=== PATIENT | female | born 1960 | race Caucasian/White ===

== ENCOUNTER 2019-08-22 09:18 | Inpatient (IN) ==
[2019-08-22] MEDS ORDERED: DUONEB (A & A) INH ONE (09:37)
--- NOTE | 2019-08-22 09:41 | PROVIDER DOCUMENTATION ---
HPI-General Adult - General Chief Complaint: Shortness of Breath Stated Complaint: SOB / HEADACHE Time Seen by Provider: 08/22/19 09:32 Source: patient Allergies/Adverse Reactions: Patient Allergies Allergy/AdvReac Type Severity Reaction Status Date / Time codeine [Codeine] Allergy Severe ANAPHYLAXIS Verified 08/22/19 10:34 latex Allergy Severe RASH Verified 08/22/19 10:34 acetaminophen [From Lortab] Allergy Intermediate HIVES Verified 08/22/19 10:34 hydrocodone bitartrate * Allergy Intermediate HIVES Verified 08/22/19 10:34 [From Lortab] Sulfa (Sulfonamide Allergy Intermediate RASH Verified 08/22/19 10:34 Antibiotics) [Sulfa(Sulfonamide Antibiotics)] piperacillin sodium * Allergy Mild RASH Verified 08/22/19 10:34 [From Zosyn] aspirin Allergy Unknown RASH Verified 08/22/19 10:34 Penicillins Allergy RASH Verified 08/22/19 10:34 morphine AdvReac Severe ANAPHYLAXIS Verified 08/22/19 10:34 Home Medications: Home Medication List Medication Instructions Recorded Confirmed Last Taken Type Clonazepam 0.5 mg PO BID 08/11/12 08/22/19 11/03/13 06:00 History Tiotropium [place] Inhaler 1 puff INH DAILY 08/11/12 08/22/19 11/03/13 06:00 History [Spiriva] Fluoxetine HCl 20 mg PO DAILY 01/26/18 08/22/19 Unknown History Furosemide 40 mg PO DAILY 01/26/18 08/22/19 Unknown History Gabapentin 100 mg PO TID 01/26/18 08/22/19 Unknown History Oxycodone/APAP 5 mg/325 mg 2 each PO Q6H PRN PRN 01/26/18 08/22/19 Unknown History [Percocet-5] Potassium Chloride E.r. [Klor-Con] 20 meq PO DAILY 01/26/18 08/22/19 Unknown History Sennosides [Senna-Gen] 1 tab PO BID 01/26/18 08/22/19 Unknown History Trazodone [Desyrel] 100 mg PO QHS 01/26/18 08/22/19 Unknown History Venlafaxine [Effexor] 37.5 mg PO DAILY 01/26/18 08/22/19 Unknown History Albuterol 2.5MG/Ipratrop 0.5MG 3 ml INH RTQ4H neb 01/27/18 08/22/19 Unknown Rx [Duoneb (A & A)] Desvenlafaxine E.r. [Pristiq ER] 50 mg PO QAM tablet 01/27/18 08/22/19 Unknown Rx Ipratropium/Albuterol INH 1 puff INH RTQ6H #1 inhaler 01/27/18 08/22/19 Unknown Rx [Combivent Respimat Inhaler] Methylprednisolone [Medrol Dosepak] 4 mg PO DIRECTED #1 package 01/27/18 08/22/19 Unknown Rx Roflumilast [Daliresp] 500 microgm PO DAILY tablet 01/27/18 08/22/19 Unknown Rx Doxycycline 100 mg PO BID #20 tab 11/13/18 08/22/19 Unknown Rx Lubiprostone [Amitiza] 24 microgm PO BID #20 cap 11/27/18 08/22/19 Unknown Rx - History of Present Illness -Gen Adult Nature of Presenting Problems: Pt. is 59 yof that presents with c/o SOB, JUÁREZ and confusion. Pt. reports she has been admitted twice for CO2 poisoning. She is on home O2 but continues to smoke. Her PCP sent her to the ED. Location of Pain/Injury: reports: head. denies: none, face, mouth, neck, chest, upper extremity, hand(s), abdomen, back, pelvis, genitalia, lower extremity, feet, upper body, lower body, generalized, other Pain Radiation: reports: no radiation. denies: arm(s), back, buttocks, chest, epigastric, feet, groin, jaw, flank (L), legs (lower), LLQ, LUQ, neck, periumbilical, flank (R), RLQ, RUQ, shoulder(s), scapula, scrotal, sternal notch, suprapubic, legs (upper), urethral, vaginal, other Quality of Pain: reports: aching. denies: cramping, sharp, tightness Severity: reports: mild. denies: moderate, severe Onset/Duration: reports: unsure, gradual Timing: reports: still present. denies: improving, intermittent, getting worse Context/Activities at Onset: reports: none. denies: light activity, moderate activity, vigorous activity, recent emotional stress, recent physical stress, recent trauma history, possible bad food, cold exposure, eating, out of country travel, rest, sleep, sexual activity, other Modifying Factors: improves with: nothing Associated Symptoms: reports: headaches, shortness of breath. denies: denies symptoms, anxiety, arm pain, back/neck pain, chest pain, constipation, cough, diaphoresis, diarrhea, dizziness, EENT symptoms, fatigue, fever/chills, genitourinary problems, heartburn, joint pain, loss of appetite, malaise, muscle aches, sinus congestion/drainage, nausea, rash, seizure, sensory/motor loss, pain with inspiration, swelling/mass in abdomen, syncope, vomiting, weakness, trouble walking, other Similar Symptoms Previously?: Yes Recently seen or treated by another doctor?: No Review of Systems - Adult - REVIEW OF SYSTEMS - ADULT Constitutional: reports: no symptoms reported Eyes: reports: no symptoms reported Ears, Nose, Mouth & Throat: reports: no symptoms reported Cardiovascular: reports: no symptoms reported Respiratory: reports: see HPI, chronic cough, shortness of breath, wheezing. denies: cough, dyspnea on exertion, pleurisy Gastrointestinal: reports: no symptoms reported Genitourinary: reports: no symptoms reported Musculoskeletal: reports: no symptoms reported Integumentary: reports: no symptoms reported Neurological: reports: see HPI, headache/migraines. denies: dizziness/vertigo, numbness, seizure, tremors Psychiatric: reports: no symptoms reported Past History - Adult - PAST MEDICAL HISTORY-ADULT Review of Records: reports: Old Records Reviewed, Nursing Assessment Review, Medications Reviewed, Social history reviewed & non-contributory. Major Childhood Illnesses: reports: denies history Cardiovascular: reports: HTN Respiratory: reports: asthma, COPD Gastrointestinal: reports: denies history Obstetrical/Gynecological: reports: denies history Genitourinary: reports: kidney disease Musculoskeletal: reports: denies history Neurological: reports: denies history Endocrine/Immune: reports: Diabetes Other Conditions: reports: denies history - PRIOR SURGERIES/PROCEDURES Surgical/Procedure History: reports: appendectomy, cholecystectomy, hysterectomy , tonsillectomy, hernia repair - PRIOR HOSPITALIZATIONS Prior Hospitalizations: reports: none - IMMUNIZATION STATUS Childhood Immunizations: See Nurse Assessment Flu Vaccine: See Nurse Assessment - FAMILY HISTORY Family History: reviewed, not pertinent - SOCIAL HISTORY Smoking: cigarettes, greater than 1 pack/day Provider spent 3-5 mins advising pt. on dangers of tobacco.: Discussed manners to quit use, and f/u contacts for add'l counseling. Physical Exam-General - PHYSICAL EXAM-ADULT Initial Vital Signs Reviewed: Yes - CONSTITUTIONAL General Appearance: alert, mild distress. negative: anxious, obtunded, combative - EYES Eyes: PERRL/EOMI, pink conjunctivae - HEAD, EARS, NOSE, MOUTH & THROAT HENMT: normocephalic/atraumatic, moist mucous membranes - NECK Neck: non-tender, full range of motion, supple, normal inspection - RESPIRATORY Respiratory: wheezing, increased rate. negative: crackles, rales, rhonchi - CARDIOVASCULAR Cardiovascular: normal peripheral pulses, regular rate, rhythm, no edema - GASTROINTESTINAL (ABDOMEN) Abdominal Exam: normal bowel sounds, non tender, soft - LYMPHATIC Lymphatic: no adenopathy - MUSCULOSKELETAL Back Exam: normal inspection, no CVA tenderness, no vertebral tenderness Extremity: normal range of motion, non-tender, normal gait, normal inspection Peripheral Pulses: radial (R): 2+, radial (L): 2+ - SKIN Integumentary: normal color, normal turgor, warm/dry - NEUROLOGIC Neurologic: grossly normal, no motor/sensory deficits - PSYCHIATRIC Psych/Mental Status: oriented x 3, other (very agitated). negative: paranoid, tearful Progress - PLAN OF CARE/RESULTS Progress/Plan/Lab Results: Vital Signs - 8 hr 08/22/19 09:25 Temperature 98.5 F Pulse Rate 89 Respiratory Rate 20 Blood Pressure 115/75 O2 Sat by Pulse Oximetry 95 Orders Category Date Time Status Cardiac Monitoring DIRECTED Care 08/22/19 09:32 Active Oxygen Therapy- ED Nursing DIRECTED Care 08/22/19 09:32 Active Saline Loc NOW Care 08/22/19 09:32 Active CHEST-2 VIEWS [RAD] Stat Exams 08/22/19 09:32 Ordered ABG [RESP] Stat Lab 08/22/19 09:37 Ordered CBC WITH ELECTRONIC DIFF [HEME] Stat Lab 08/22/19 09:32 Uncollected CK PROFILE [SP CHEM] Stat Lab 08/22/19 09:32 Uncollected COMPREHENSIVE METABOLIC PANEL [CHEM] Stat Lab 08/22/19 09:32 Uncollected PRO B-NATRIURETIC PEPTIDE Stat Lab 08/22/19 09:32 Uncollected PROTIME WITH INR [COAG] Stat Lab 08/22/19 09:32 Uncollected PTT [COAG] Stat Lab 08/22/19 09:32 Uncollected TROPONIN T Stat Lab 08/22/19 09:[address] W/POSS RFLX CULT [URINALYSIS] Stat Lab 08/22/19 09:37 Uncollected Albuterol 2.5MG/Ipratrop 0.5MG [Duoneb (A & A)] Med 08/22/19 09:37 Once 3 ml INH NOW ONE Aerosol Treatments Routine Oth 08/22/19 09:37 Ordered Aerosol Treatments Stat Oth 08/22/19 09:37 Ordered CP/SOB/Palp >45 yrs of Age Stat Oth 08/22/19 09:32 Ordered EKG [EKG] Stat Ther 08/22/19 09:32 Ordered Result Diagrams: 08/22/19 09:50 08/22/19 09:50 - EKG 1 Time of EKG reading by physician:: 10:15 EKG Read and Signed by:: Tish Beauchamp EKG Interpretation (*Must complete 3 of following elements*): Normal Rate: 78 Rhythm: NSR [place]: normal QRS: normal PA Interval: normal ST Wave: normal - XRAY 1 XRAY Study: Chest ([facility] - [address] [place] [id number] [facility] - [address] [place] [address] Department of Imaging Patient: RASTA MAS Date: 08/22/19#: [id number] : 1960DM Status: PRE ERAcct#: [id number] Age/Sex: 59/FRoom/Bed: Loc: P.ED Ordering Physician: Tish Beauchamp MD Family Physician: Mauri Baird Reason for Procedure: sob ___ Signed EXAM: CHEST-2 VIEWS HISTORY: sob TECHNIQUE: Two views COMPARISON: 11/13/2018 FINDINGS: The lungs are hyperexpanded. The pulmonary vessels are small. No cardiomegaly. Moderate sized hiatal hernia. No pleural effusions. No pneumonia. There is a left base granuloma. IMPRESSION: Severe emphysema. Electronically signed by Jonathan Huston 08/22/2019 10:22 AM 08/22/19 1022 Interpreting Physician: Jonathan Huston MD Dictated Date/Time: 08/22/19 1022 cc: Tish Beauchamp MD; Mauri Baird) XRAY Interpretation: See note - CONSULTS/PCP/HOSPITALIST Notification #1 *Consult/PCP/Hospitalist*: Dr. Armstrong Time Discussed: 11:21 Reason/Comments: Admission Consult Disposition: Will see in ED, Admit Departure - Departure Date of Disposition Decision: 08/22/19 Time of Disposition Decision: 11:18 DIAGNOSIS: Hypercapnia, Hyperkalemia UTI (urinary tract infection) Qualifiers: Urinary tract infection type: acute cystitis Hematuria presence: without hematuria Qualified Code(s): N30.00 - Acute cystitis without hematuria Disposition: ADMITTED INPATIENT 09 Certified Medical Emergency: Emergent Condition: Stable Referrals and Follow-Ups: Mauri Baird CRNP [Primary Care Provider] - - Critical Care Note This patient required my direct & personal management of CC.: No Attestation - Physician/ JOHNATHAN Attestation Patient care was provided by Advanced Practice Provider:: Yes Advanced Practice Provider:: Brianna Maradiaga Advanced Practice Provider documentation review:: The Mid-level provider documentation, treatment plan and medical decision making was reviewed by the physician who agrees with all treatment and medical decision making by the [facility]. The physician spent face to face time with patient:: No Advanced Practice Provider documentation review:: Supervising physician onsite and consulted in the evaluation and care of this patient. The physician did not have a face to face encounter with the patient.
[2019-08-22 10:09] LABS: BLOOD TYPE ARTERIAL; HCO3-(ACT) 37.2 mmoll (20.0-26.0); METHB 0.5 % (0.0-1.5); O2(CT) 16.9 mL/dL (15.0-23.0); PO2(98.6) 77 mmHg (60-100); SAMPLE BLOOD; SAO2 96.2 % (95.0-100.0); THB 13.5 g/dL (11.5-17.4); pH(98.6) 7.39 (7.35-7.45)
[2019-08-22 10:13] LABS: PCO2(98.6) 74 mmHg (35-45)
[2019-08-22 10:14] LABS: ALLEN TEST YES; MODALITY CANNULA
[2019-08-22 10:22] LABS: BASO# 0.04 X1000 (0.0-0.2); BASO% 0.5 % (0.0-0.8); EOS# 0.18 X1000 (0.0-0.7); EOS% 2.3 % (0.0-10.0); HEMATOCRIT 46.6 % (37.0-47.0); HEMOGLOBIN 14.3 g/dL (12.0-16.0); IMM GRAN# 0.04 X1000 (0.0-0.04); IMM GRAN% 0.5 % (0.0-0.5); LYMPH# 1.21 X1000 (1.2-3.4); LYMPH% 15.7 % (20.5-51.1); MCH 29.4 PG (27-31); MCHC 30.7 g/dL (33-37); MCV 95.9 FL (81-99); MONO# 0.52 X1000 (0.11-0.59); MONO% 6.7 % (1.7-9.3); MPV 9.9 FL (7.4-10.4); NEUT# 5.72 X1000 (1.4-6.5); NEUT% 74.3 % (42.2-75.2); PLT 376 X1000 (130-400); RBC 4.86 XMIL (4.2-5.4); RDW 12.8 % (11.5-14.5); WBC 7.71 X1000 (4.8-10.8)
--- NOTE | 2019-08-22 10:25 | Diag Imaging Result Doc PS360 ---
EXAM: CHEST-2 VIEWS HISTORY: sob TECHNIQUE: Two views COMPARISON: 11/13/2018 FINDINGS: The lungs are hyperexpanded. The pulmonary vessels are small. No cardiomegaly. Moderate sized hiatal hernia. No pleural effusions. No pneumonia. There is a left base granuloma. IMPRESSION: Severe emphysema. Electronically signed by Jonathan Huston 08/22/2019 10:22 AM
[2019-08-22 10:30] LABS: INR 0.92; PROTIME 12.8 Seconds (11.0-16.0)
[2019-08-22 10:31] LABS: PTT 25.9 Seconds (22.3-41.8)
[2019-08-22 10:34] LABS: BILIRUBIN URINE NEGATIVE (NEGATIVE); BLOOD URINE NEGATIVE (NEGATIVE); CLARITY CLEAR (CLEAR); COLOR YELLOW; GLUCOSE URINE NEGATIVE (NEGATIVE); KETONE URINE NEGATIVE (NEGATIVE); LEUKOCYTES URINE NEGATIVE (NEGATIVE); NITRITE URINE POSITIVE (NEGATIVE); PROTEIN URINE NEGATIVE (NEGATIVE); SP GRAVITY URINE 1.005; UROBILINOGEN URINE NORMAL
[2019-08-22] MEDS ORDERED: MACROBID PO ONE (10:38)
[2019-08-22] MEDS ORDERED: TYLENOL PO ONE (10:50)
[2019-08-22 10:55] LABS: URINE EPITHELIAL CELLS <10 /HPF (<10); URINE SOURCE CLEAN CATCH
[2019-08-22 10:59] LABS: AGAP 15; ALBUMIN 5.2 g/dL (3.5-5.0); ALKALINE PHOSPHATASE 168 U/L (32-104); BUN 11 mg/dL (8-22); CALCIUM 10.2 mg/dL (8.8-10.2); CHLORIDE 91 mmol/L (98-107); CK PROFILE 119 U/L (24-173); COSMO 285; CREATININE 0.5 mg/dL (0.5-0.9); ESTIMATED GFR > 60; GLUCOSE 112 mg/dL (70-104); GOT 17 U/L (10-30); GPT 14 U/L (10-36); POTASSIUM 5.3 mmol/L (3.5-5.1); SODIUM 143 mmol/L (136-145); TCO2 37 mmol/L (25-35); TOTAL PROTEIN 8.1 g/dL (6.3-8.3)
--- NOTE | 2019-08-22 12:24 | EKG Report ---
Test Performed on : 08/22/2019 10:15:55 AM Test Reason : sob Blood Pressure : / mmHG Vent. Rate : 078 BPM Atrial Rate : 078 BPM P-R Int : 124 ms QRS Dur : 096 ms QT Int : 416 ms P-R-T Axes : 048 049 067 degrees QTc Int : 474 ms Normal sinus rhythm. Normal ECG When compared with ECG of 13-NOV-2018 15:03, No significant change was found Unconfirmed Result
[2019-08-22] MEDS: DUONEB (A & A) INH SCH ×4 (12:30→22:45)
[2019-08-22] MEDS ORDERED: TYLENOL PO PRN (12:38)
[2019-08-22] MEDS ORDERED: NS 1,000 ML IV SCH (12:38)
[2019-08-22] MEDS ORDERED: NICODERM PATCH TD PRN (12:38)
[2019-08-22] MEDS ORDERED: ZOFRAN IV PRN (12:38)
[2019-08-22] MEDS ORDERED: DUONEB (A & A) INH PRN (12:38)
[2019-08-22] MEDS: SOLU-MEDROL IV SCH ×2 (13:18→21:05)
[2019-08-22] MEDS ORDERED: LEVAQUIN 500 MG in NS 100 ML IV SCH (14:00)
[2019-08-22] MEDS: NEURONTIN PO SCH ×2 (15:35→21:06)
[2019-08-22] MEDS: AMITIZA PO SCH (16:10)
[2019-08-22 16:31] LABS: BE 13.8 mmoll (-3.0-3.0); BLOOD TYPE ARTERIAL; HCO3-(ACT) 35.4 mmoll (20.0-26.0); METHB 0.9 % (0.0-1.5); O2(CT) 16.8 mL/dL (15.0-23.0); PO2(98.6) 59 mmHg (60-100); SAMPLE BLOOD; SAO2 92.7 % (95.0-100.0); THB 13.6 g/dL (11.5-17.4); pH(98.6) 7.36 (7.35-7.45)
[2019-08-22 16:34] LABS: ALLEN TEST YES; MODALITY BI PAP
[2019-08-22 16:35] LABS: PCO2(98.6) 76 mmHg (35-45)
--- NOTE | 2019-08-22 16:54 | HISTORY AND PHYSICAL ---
PRIMARY CARE PROVIDER: JUAN MANUEL Santana. EQUIPMENT TESTER: None. CHIEF COMPLAINT: Shortness of breath, headache, intermittent altered mentation. HISTORY OF PRESENT ILLNESS: Ms. Winn is a 59-year-old female who carries a past medical history of COPD, emphysema, chronic pain, anxiety. She wears home O2. In 2018, she was supposed to wear Trilogy machine. However, she states she never wore it, and it was taken away. She is supposed to wear CPAP at night for her sleep apnea. However, she is noncompliant with that as well. She has continued hypercarbic respiratory failure, and continues to smoke a pack and a half to two packs per day. She came to the ED complaining of shortness of breath, headache, intermittent confusion, and a productive cough with clear to yellow-greenish sputum, urinary frequency. She also reported some wheezes. She does not feel like her bladder empties all the time. She said that for the last year, she will have total memory loss, but more so in the last week and a half. The patient is awake, alert, and oriented x4. Follows commands and moves all extremities now. Her CO2 on ABG was 74. Carboxyhemoglobin was 7, and was noted to be slight hyperkalemic at 5.3, with no EKG changes. Her urinalysis was positive for nitrates, but does not show any bacteria. We will try to initiate her on BiPAP if she can tolerate. I believe this might be the patient's new norm, as well as incentive spirometer and treatment for COPD exacerbation. She does wish to be a DO NOT RESUSCITATE. PAST MEDICAL HISTORY: 1. COPD on home O2 at 3 L. She is supposed to wear CPAP at night. 2. Sleep apnea. 3. Chronic pain. 4. Anxiety. PAST SURGICAL HISTORY: Hysterectomy, appendectomy, cholecystectomy, and bowel resection. ALLERGIES: Codeine, latex, hydrocodone, sulfa, aspirin, penicillin, morphine. FAMILY HISTORY: Reviewed and noncontributory. SOCIAL HISTORY: She lives at home. She continues to smoke 1-1/2 to 2 packs of cigarettes per day. No illicit drug use. Supportive family at the bedside. She has DME with [facility]. HOME MEDICATIONS: As per EMR. PHYSICAL EXAMINATION: VITAL SIGNS: Temperature 98.5, heart rate 89, respirations 20, blood pressure 115/75, O2 is 95% on 3 L. GENERAL: Ms. Winn is a pleasant, 59-year-old, female, who is sitting up in the bed in no acute distress. HEENT: Atraumatic, normocephalic. PERRL. NECK: Supple. Trachea midline. CARDIOVASCULAR: S1, S2 appreciated. No murmurs, gallops, or rubs noted. RESPIRATORY: Lung sounds with decreased airway entry throughout all lung long. Could not appreciate any rales, rhonchi, or wheezes. GASTROINTESTINAL: Flat, soft, nontender, nondistended. Positive bowel sounds x4 quadrants. LOWER EXTREMITIES: Negative for edema. NEUROLOGIC: She is awake, alert, and oriented x4. Follows commands. Moves all extremities. IMAGING: Chest x-ray: Severe emphysema. LABORATORY DATA: White count 7, hemoglobin and hematocrit 14 and 46, platelet count is 376,000. ABG: PH 7.39, pCO2 of 74, PO2 of 77, bicarb 37, base excess 16, with oxyhemoglobin 89, carboxyhemoglobin 7 on 3 L nasal cannula. Sodium 143, potassium 5.3, carbon dioxide 37, BUN 11, creatinine 0.5, blood glucose is 112. Urinalysis positive for nitrates, negative for bacteria. ASSESSMENT AND PLAN: 1. Chronic obstructive pulmonary disease/emphysema exacerbation. Will try to place her on bilevel positive airway pressure as tolerated. Will recheck an ABG. The patient may be at her new baseline. Will ask Palliative Care to see her. She has made herself a DNR level 1 with sister and daughter at bedside. Continue with bronchodilators, aggressive pulmonary toilet. 2. Sleep apnea. Will do bilevel positive airway pressure as needed and at bedtime. 3. Probable urinary tract infection, positive for nitrates. We will continue with IV antibiotics. 4. Continued tobacco use and abuse. The patient will need continued education on smoking cessation. However, she does not have any need to quit at this time. 5. Chronic back pain. Continue home medications. 6. Acute on chronic hypercapnic respiratory failure. Continue supplemental oxygen and as needed bilevel positive airway pressure. The patient states that she does not see Dr. Loredo anymore. She is in the process of finding a new pricing clerk. 7. Anxiety. Continue home p.r.n.'s. 8. Further recommendations to follow physician evaluation and laboratory and diagnostic data. Dictated by JUAN MANUEL Daigle for Scott Estrella MD Addendum: Patient seen and examined by myself. Agree with JUAN MANUEL note. It reflects my assessment and plan. Patient is being admitted to hospital for COPD exacerbation. Patient unfortunately continues to smoke. She will be placed on Duoneb q4hs and IV steroids as well. Will monitor patient closely. cc: Scott Estrella MD [facility]
[2019-08-22] MEDS: DESYREL PO SCH (21:06)
[2019-08-22] MEDS: SENOKOT PO SCH (21:06)
[2019-08-22] MEDS: KLONOPIN PO SCH (21:06)
[2019-08-23] MEDS: DUONEB (A & A) INH SCH ×6 (03:05→23:12)
[2019-08-23] MEDS: SOLU-MEDROL IV SCH ×3 (03:37→21:09)
[2019-08-23 06:12] LABS: BE 8.7 mmoll (-3.0-3.0); BLOOD TYPE ARTERIAL; HCO3-(ACT) 31.6 mmoll (20.0-26.0); METHB 0.7 % (0.0-1.5); O2(CT) 18.4 mL/dL (15.0-23.0); O2HB 92.6 % (95.0-99.0); PO2(98.6) 71 mmHg (60-100); SAMPLE BLOOD; SAO2 94.9 % (95.0-100.0); THB 14.1 g/dL (11.5-17.4); pH(98.6) 7.36 (7.35-7.45)
[2019-08-23 06:22] LABS: ALLEN TEST YES; MODALITY CANNULA; PCO2(98.6) 65 mmHg (35-45)
[2019-08-23 06:36] LABS: BASO# 0.01 X1000 (0.0-0.2); BASO% 0.1 % (0.0-0.8); HEMATOCRIT 43.3 % (37.0-47.0); IMM GRAN# 0.06 X1000 (0.0-0.04); IMM GRAN% 0.9 % (0.0-0.5); LYMPH# 0.58 X1000 (1.2-3.4); LYMPH% 8.2 % (20.5-51.1); MCH 28.4 PG (27-31); MCV 94.7 FL (81-99); MONO# 0.05 X1000 (0.11-0.59); MONO% 0.7 % (1.7-9.3); MPV 9.8 FL (7.4-10.4); NEUT# 6.35 X1000 (1.4-6.5); NEUT% 90.1 % (42.2-75.2); PLT 355 X1000 (130-400); RBC 4.57 XMIL (4.2-5.4); RDW 12.5 % (11.5-14.5); WBC 7.05 X1000 (4.8-10.8)
[2019-08-23 06:58] LABS: AGAP 11; ALBUMIN 4.3 g/dL (3.5-5.0); ALKALINE PHOSPHATASE 139 U/L (32-104); BUN 12 mg/dL (8-22); CALCIUM 9.8 mg/dL (8.8-10.2); CHLORIDE 93 mmol/L (98-107); COSMO 278; CREATININE 0.5 mg/dL (0.5-0.9); ESTIMATED GFR > 60; GLUCOSE 175 mg/dL (70-104); GOT 14 U/L (10-30); GPT 12 U/L (10-36); POTASSIUM 4.7 mmol/L (3.5-5.1); SODIUM 137 mmol/L (136-145); TCO2 34 mmol/L (25-35); TOTAL BILIRUBIN < 0.15 mg/dL (0.20-1.00); TOTAL PROTEIN 7.4 g/dL (6.3-8.3)
--- NOTE | 2019-08-23 07:55 | Diag Imaging Result Doc PS360 ---
CHEST-PORTABLE - 08/23/2019 INDICATION: short of breath COMPARISON: 08/22/2019 FINDINGS: Stable COPD changes. There is increased density of patchy airspace opacities in the right lung apex and right lung base. The left lung is fairly clear. Heart size is top normal. Pulmonary vascularity is normal. No pneumothorax or significant pleural effusion. IMPRESSION: Worsening, patchy nonspecific areas at atelectasis or infiltrate in the right lung apex and base. Electronically signed by David Zamudio 08/23/2019 7:52 AM
[2019-08-23] MEDS: SPIRIVA INH SCH (08:15)
[2019-08-23 08:51] LABS: LYMPHS 8 % (21-51); MONO 2 % (1-9); SEGS 90 % (42-75)
[2019-08-23] MEDS ORDERED: PROZAC PO SCH (09:00)
[2019-08-23] MEDS: EFFEXOR PO SCH (09:19)
[2019-08-23] MEDS: NEURONTIN PO SCH ×3 (09:20→21:08)
[2019-08-23] MEDS: PERCOCET-5 PO PRN ×2 (09:20→18:09)
[2019-08-23] MEDS: SENOKOT PO SCH ×2 (09:20→21:08)
[2019-08-23] MEDS: PRISTIQ ER PO SCH (09:20)
[2019-08-23] MEDS: KLONOPIN PO SCH ×2 (09:20→21:08)
[2019-08-23] MEDS: AMITIZA PO SCH ×2 (09:20→16:14)
[2019-08-23] MEDS: DALIRESP PO SCH (09:20)
[2019-08-23] MEDS ORDERED: LEVAQUIN 500 MG/D5W 500 MG/100 ML IVPB IV SCH (14:00)
--- NOTE | 2019-08-23 19:43 | PROGRESS NOTE ---
DATE: 08/23/2019 SUBJECTIVE: Patient notes she is breathing a lot better this morning than she was on admission. Denies any fevers or chills. Denies any cough or congestion. OBJECTIVE: Vital Signs: Reviewed. Temperature 97.8 degrees, pulse 74, respiratory rate 18, BP 112/85. General: Patient is in mild current respiratory distress. Overall, she states she is feeling better. HEENT: Normocephalic. Neck: Supple. Cardiovascular: Regular rate. Chest: Markedly decreased but equal breath sounds bilaterally. Positive wheezing throughout. No crackles. Abdomen: Soft, nondistended. Extremities: Moves all extremities. ASSESSMENT: 1. Chronic obstructive pulmonary disease with exacerbation, end-stage chronic obstructive pulmonary disease. 2. Do Not Resuscitate level 1. 3. Obstructive sleep apnea. 4. Chronic back pain. 5. Acute on chronic hypercapnic respiratory failure. PLAN: We will continue antibiotics. Continue Solu-Medrol. Continue breathing treatments, oxygen, and will follow. cc: Amadeo De La Cruz MD
[2019-08-23] MEDS: DESYREL PO SCH (21:08)
[2019-08-24] MEDS: DUONEB (A & A) INH SCH ×6 (03:17→23:55)
[2019-08-24] MEDS: SOLU-MEDROL IV SCH ×3 (04:50→22:49)
[2019-08-24] MEDS: SPIRIVA INH SCH (08:00)
[2019-08-24] MEDS: EFFEXOR PO SCH (08:37)
[2019-08-24] MEDS: COZAAR PO SCH (08:38)
[2019-08-24] MEDS: PROTONIX PO SCH (08:38)
[2019-08-24] MEDS: BUSPAR PO SCH ×2 (08:38→20:30)
[2019-08-24] MEDS: AMITIZA PO SCH ×2 (08:38→17:26)
[2019-08-24] MEDS: TOPAMAX PO SCH (08:38)
[2019-08-24] MEDS: LASIX PO SCH (08:38)
[2019-08-24] MEDS: DALIRESP PO SCH (08:38)
[2019-08-24] MEDS: PRISTIQ ER PO SCH (08:38)
[2019-08-24] MEDS: NEURONTIN PO SCH ×6 (08:39→20:34)
[2019-08-24] MEDS: KLONOPIN PO SCH ×2 (08:39→20:34)
[2019-08-24] MEDS: PROZAC PO SCH (08:39)
[2019-08-24] MEDS: KLOR-CON PO SCH (08:39)
[2019-08-24] MEDS: LEVAQUIN PO SCH (08:39)
[2019-08-24] MEDS: SENOKOT PO SCH ×2 (08:39→22:48)
[2019-08-24] MEDS: PERCOCET-10 PO PRN (11:12)
[2019-08-24] MEDS: ZOFRAN ODT PO PRN ×2 (11:13→19:47)
[2019-08-24] MEDS: PERCOCET-5 PO PRN (20:33)
[2019-08-24] MEDS: DESYREL PO SCH (20:33)
--- NOTE | 2019-08-24 23:05 | PROGRESS NOTE ---
DATE: 08/24/2019 SUBJECTIVE: The patient notes that she is breathing easier, starting to feel better. Denies any fevers or chills. OBJECTIVE: Temperature 97.1 degrees, pulse 87, respiratory rate 18, BP 112/69.General: The patient is in mild respiratory distress, but I believe this is her baseline. HEENT: Normocephalic. Neck supple. Cardiovascular: Regular rate. Chest decreased but equal. Minimal wheezing. Abdomen is soft, nondistended. Extremities: Moves all extremities. ASSESSMENT: 1. Urinary tract infection, growing gram-negative rods. 2. Chronic obstructive pulmonary disease with exacerbation. 3. Acute hypercapnic respiratory failure. 4. Sleep apnea. 5. Chronic tobacco abuse. 6. Chronic back pain. 7. Headache. PLAN: We are going to continue the patient in the hospital, continue oxygen and breathing treatments. We will decrease her Solu-Medrol to 40 q.8. We will follow her urine culture. Further orders as needed. cc: Amadeo De La Cruz MD
[2019-08-25] MEDS: DUONEB (A & A) INH SCH ×5 (04:13→19:10)
[2019-08-25] MEDS: TOPAMAX PO SCH ×3 (05:22→20:52)
[2019-08-25] MEDS: PROTONIX PO SCH (06:04)
[2019-08-25] MEDS: SPIRIVA INH SCH (08:21)
[2019-08-25] MEDS: BUSPAR PO SCH ×2 (10:37→20:53)
[2019-08-25] MEDS: KLONOPIN PO SCH ×2 (10:37→20:52)
[2019-08-25] MEDS: DALIRESP PO SCH (10:38)
[2019-08-25] MEDS: KLOR-CON PO SCH (10:38)
[2019-08-25] MEDS: EFFEXOR PO SCH (10:38)
[2019-08-25] MEDS: SENOKOT PO SCH ×2 (10:38→20:52)
[2019-08-25] MEDS: LASIX PO SCH (10:38)
[2019-08-25] MEDS: AMITIZA PO SCH ×2 (10:38→17:00)
[2019-08-25] MEDS: LEVAQUIN PO SCH (10:38)
[2019-08-25] MEDS: NEURONTIN PO SCH ×6 (10:39→20:52)
[2019-08-25] MEDS: COZAAR PO SCH (10:39)
[2019-08-25] MEDS: PRISTIQ ER PO SCH (10:39)
[2019-08-25] MEDS: PROZAC PO SCH (10:39)
[2019-08-25] MEDS: PERCOCET-10 PO PRN (10:44)
[2019-08-25] MEDS: SOLU-MEDROL IV SCH ×3 (14:05→21:00)
[2019-08-25] MEDS: ROCEPHIN 1 GM in NS 50 ML IV SCH (17:00)
--- NOTE | 2019-08-25 18:43 | PROGRESS NOTE ---
DATE: 08/25/2019 SUBJECTIVE: Patient notes that overall she is feeling better. She is having improved breathing. She is having less coughing, less congestion. Denies any fevers. PHYSICAL EXAMINATION: Temperature 97, pulse 100, respiratory rate 18, BP 122/75.General: Patient is in mild current respiratory distress. Expect that this may be very close to her chronic baseline. HEENT: Normocephalic, atraumatic. PERRL. Neck: Supple. Cardiovascular: Regular rate. Chest: Clear, nonlabored. No current wheezing, although she has very poor air movement. Abdomen: Soft, nondistended. Extremities: Moves all extremities. ASSESSMENT: 1. Urinary tract infection. Her urine is not sensitive to Levaquin, so we are going to switch her to Rocephin given her penicillin allergy. 2. Chronic obstructive pulmonary disease with exacerbation. 3. Sleep apnea. 4. Chronic back pain. 5. Chronic tobacco abuse. PLAN: Overall, patient has improved. We are going to switch her antibiotics today. If her symptoms continue to improve, we certainly can discharge her home tomorrow. cc: Amadeo De La Cruz MD
[2019-08-25] MEDS: DESYREL PO SCH (20:53)
[2019-08-26] MEDS: DUONEB (A & A) INH SCH ×7 (03:30→23:32)
[2019-08-26] MEDS: SOLU-MEDROL IV SCH ×3 (05:39→20:53)
[2019-08-26] MEDS: PROTONIX PO SCH ×2 (05:40→06:44)
[2019-08-26] MEDS: SPIRIVA INH SCH (07:46)
[2019-08-26] MEDS: PERCOCET-10 PO PRN ×2 (09:40→17:10)
[2019-08-26] MEDS: EFFEXOR PO SCH (09:40)
[2019-08-26] MEDS: KLOR-CON PO SCH (09:41)
[2019-08-26] MEDS: COZAAR PO SCH (09:41)
[2019-08-26] MEDS: PRISTIQ ER PO SCH (09:41)
[2019-08-26] MEDS: NEURONTIN PO SCH ×4 (09:41→17:09)
[2019-08-26] MEDS: SENOKOT PO SCH ×2 (09:41→22:25)
[2019-08-26] MEDS: TOPAMAX PO SCH ×2 (09:41→20:52)
[2019-08-26] MEDS: KLONOPIN PO SCH ×2 (09:41→20:53)
[2019-08-26] MEDS: LASIX PO SCH (09:41)
[2019-08-26] MEDS: DIFLUCAN PO SCH (09:41)
[2019-08-26] MEDS: PROZAC PO SCH (09:41)
[2019-08-26] MEDS: DALIRESP PO SCH (09:42)
[2019-08-26] MEDS: BUSPAR PO SCH ×2 (09:42→20:53)
[2019-08-26] MEDS: AMITIZA PO SCH ×2 (09:42→17:09)
--- NOTE | 2019-08-26 13:18 | PROGRESS NOTE ---
DATE: 08/26/2019 SUBJECTIVE: The patient notes that she is feeling better although she is still having some cough, congestion. Still having some shortness of breath. Still fatigued and lightheaded when she attempts to ambulate to the restroom. PHYSICAL EXAMINATION: Vital Signs: Reviewed. Temperature 97 degrees, pulse 80, respiratory 20, blood pressure 127/75. General: Patient is awake, alert, currently in mild respiratory distress, but this appears to be her chronic baseline. HEENT: Normocephalic. Neck: Supple. Cardiovascular: Regular rate. Chest: Clear but greatly decreased bilaterally. Poor air movement bilaterally but equal. Abdomen: Soft, nondistended. Extremities: Moves all extremities. Neurologic: No focal changes. ASSESSMENT: 1. Enterobacter urinary tract infection resistant to Levaquin. 2. Chronic obstructive pulmonary disease with exacerbation. 3. Sleep apnea. 4. Acute on chronic hypercapnic respiratory failure. PLAN: We have stopped her Levaquin, switched to Rocephin. Going to decrease her Solu-Medrol to 40 IV today and will follow. Hopefully, she will get physically stronger and can discharge home soon. cc: Amadeo De La Cruz MD
[2019-08-26] MEDS: ROCEPHIN 1 GM in NS 50 ML IV SCH (17:10)
[2019-08-26 18:39] LABS: C DIFF TOXIN PL NEGATIVE (NEGATIVE)
[2019-08-26] MEDS: DESYREL PO SCH (20:52)
[2019-08-26] MEDS: MAXIPIME 2 GM in NS 100 ML IV SCH (20:53)
[2019-08-27] MEDS: DUONEB (A & A) INH SCH ×6 (03:43→23:41)
[2019-08-27] MEDS: SOLU-MEDROL IV SCH ×3 (05:22→20:55)
[2019-08-27] MEDS: PROTONIX PO SCH ×2 (05:22→07:10)
[2019-08-27] MEDS: SPIRIVA INH SCH (07:56)
[2019-08-27] MEDS: KLONOPIN PO SCH ×2 (08:19→20:55)
[2019-08-27] MEDS: BUSPAR PO SCH ×2 (08:20→20:55)
[2019-08-27] MEDS: TOPAMAX PO SCH ×2 (08:20→20:55)
[2019-08-27] MEDS: NEURONTIN PO SCH ×3 (08:20→16:01)
[2019-08-27] MEDS: SENOKOT PO SCH ×2 (08:20→20:55)
[2019-08-27] MEDS: PROZAC PO SCH (08:20)
[2019-08-27] MEDS: DALIRESP PO SCH (08:21)
[2019-08-27] MEDS: PRISTIQ ER PO SCH (08:21)
[2019-08-27] MEDS: COZAAR PO SCH (08:21)
[2019-08-27] MEDS: KLOR-CON PO SCH (08:21)
[2019-08-27] MEDS: MAXIPIME 2 GM in NS 100 ML IV SCH ×2 (08:21→20:55)
[2019-08-27] MEDS: AMITIZA PO SCH ×2 (08:21→16:01)
[2019-08-27] MEDS: LASIX PO SCH (08:22)
[2019-08-27] MEDS: PERCOCET-5 PO PRN ×2 (09:10→17:16)
[2019-08-27] MEDS: EFFEXOR PO SCH (09:12)
[2019-08-27] MEDS: DIFLUCAN PO SCH (09:14)
--- NOTE | 2019-08-27 12:06 | PROGRESS NOTE ---
DATE: 08/27/2019 SUBJECTIVE: The patient notes that she is feeling okay, although states that she is feeling a little bit worse today than she was yesterday. Notes her shortness of breath has increased, her work of breathing is increased, she is much more fatigued and lightheaded, and having more difficulty ambulating. PHYSICAL EXAMINATION: Vitals: Temperature 97, pulse 97, respiratory rate 18, BP 116/77. General: The patient is awake, she is alert, she is in mild to moderate respiratory distress, which is worse than yesterday's exam. HEENT: Normocephalic. Neck: Supple. Cardiovascular: Regular rate. No murmurs. Chest: Decreased breath sounds compared to yesterday, increased wheezing compared to yesterday, increased labor compared to yesterday. Abdomen: Soft. Nondistended. Extremities: Moves all extremities. Neurologic: No changes. ASSESSMENT: 1. COPD, end-stage with exacerbation. 2. DNR level 1. 3. Enterobacter in her sputum that is resistant to Rocephin and Levaquin. We changed her over yesterday to cefepime. 4. Chronic back pain. 5. Dysuria. Her urine culture has been updated to be no growth. PLAN: We are going to continue the patient in the hospital. Her sputum is growing Enterobacter. We have switched her to cefepime. We will continue Solu-Medrol, breathing treatments, oxygen. She certainly is worse today and therefore cannot discharge, expect that it will be a couple of days at this point. cc: Amadeo De La Cruz MD
[2019-08-27] MEDS: DESYREL PO SCH (20:55)
[2019-08-27] MEDS: FLEXERIL PO PRN (21:04)
[2019-08-28] MEDS: DUONEB (A & A) INH SCH ×6 (03:10→23:22)
[2019-08-28] MEDS: SOLU-MEDROL IV SCH ×3 (04:36→20:54)
[2019-08-28] MEDS: PROTONIX PO SCH (06:26)
[2019-08-28] MEDS: SPIRIVA INH SCH (07:36)
[2019-08-28] MEDS: AMITIZA PO SCH ×2 (07:59→17:40)
[2019-08-28] MEDS: DALIRESP PO SCH (07:59)
[2019-08-28] MEDS: BUSPAR PO SCH ×2 (07:59→20:54)
[2019-08-28] MEDS: PRISTIQ ER PO SCH (07:59)
[2019-08-28] MEDS: DIFLUCAN PO SCH (07:59)
[2019-08-28] MEDS: KLOR-CON PO SCH (08:00)
[2019-08-28] MEDS: COZAAR PO SCH (08:00)
[2019-08-28] MEDS: LASIX PO SCH (08:00)
[2019-08-28] MEDS: NEURONTIN PO SCH ×3 (08:00→18:26)
[2019-08-28] MEDS: KLONOPIN PO SCH ×2 (08:00→20:54)
[2019-08-28] MEDS: TOPAMAX PO SCH ×2 (08:00→20:54)
[2019-08-28] MEDS: SENOKOT PO SCH ×2 (08:00→20:54)
[2019-08-28] MEDS: EFFEXOR PO SCH (08:01)
[2019-08-28] MEDS: PROZAC PO SCH (08:01)
[2019-08-28] MEDS: MAXIPIME 2 GM in NS 100 ML IV SCH ×2 (08:01→20:55)
[2019-08-28 09:44] LABS: HEMATOCRIT 39.9 % (37.0-47.0); HEMOGLOBIN 12.2 g/dL (12.0-16.0); MCH 28.8 PG (27-31); MCHC 30.6 g/dL (33-37); MCV 94.1 FL (81-99); MPV 9.2 FL (7.4-10.4); RBC 4.24 XMIL (4.2-5.4); RDW 12.4 % (11.5-14.5); WBC 10.11 X1000 (4.8-10.8)
[2019-08-28 10:26] LABS: AGAP 9; ALBUMIN 4.2 g/dL (3.5-5.0); ALKALINE PHOSPHATASE 107 U/L (32-104); BUN 14 mg/dL (8-22); CALCIUM 9.5 mg/dL (8.8-10.2); CHLORIDE 95 mmol/L (98-107); COSMO 274; CREATININE 0.5 mg/dL (0.5-0.9); ESTIMATED GFR > 60; GLUCOSE 121 mg/dL (70-104); GOT 12 U/L (10-30); GPT 16 U/L (10-36); POTASSIUM 4.5 mmol/L (3.5-5.1); SODIUM 136 mmol/L (136-145); TCO2 32 mmol/L (25-35); TOTAL BILIRUBIN < 0.15 mg/dL (0.20-1.00); TOTAL PROTEIN 6.7 g/dL (6.3-8.3)
[2019-08-28] MEDS: PERCOCET-5 PO PRN ×2 (10:33→18:00)
--- NOTE | 2019-08-28 11:25 | Diag Imaging Result Doc PS360 ---
EXAM: CHEST-2 VIEWS 08/28/2019 HISTORY: hypoxia TECHNIQUE: PA and lateral chest COMMENT: There is apical pleural thickening particularly on the right. There is ill-defined opacity in the right lower lobe which is slightly worse than on 08/23/2019. There is a hiatal hernia. There may be COPD. IMPRESSION: Atelectasis and/or pneumonia right lower lobe. COPD. Electronically signed by Caden Carr 08/28/2019 11:22 AM
--- NOTE | 2019-08-28 16:44 | PROGRESS NOTE ---
DATE: 08/28/2019 SUBJECTIVE: Patient notes that she is starting to feel a little bit better today. Denies any fevers, chills. States her cough is improved. Still having some shortness of breath. PHYSICAL EXAMINATION: Vitals: Temp 98, pulse 80, respiratory rate 18, BP 118/79. General: Patient is awake, alert. Lungs: Her lungs appear much improved today, although she does have some wheezing; it is much better air movement and less wheezing than she had over the last few days. HEENT: Normocephalic. Neck: Supple. Cardiovascular: Regular rate. Abdomen: Soft, nondistended, nontender. Extremities: Moves all extremities. Neurologic: No changes. ASSESSMENT: 1. Enterobacter aerogenes in her sputum, currently on cefepime. 2. Chronic obstructive pulmonary disease with exacerbation. 3. Sleep apnea. 4. Chronic tobacco abuse. 5. Chronic back pain. PLAN: We will continue patient in the hospital. We are going to repeat a chest x-ray today and will follow. Hopefully, she can continue to improve and possibly even discharge home tomorrow. cc: Amadeo De La Cruz MD
[2019-08-28] MEDS: DESYREL PO SCH (20:54)
[2019-08-28] MEDS: FLEXERIL PO PRN (21:00)
[2019-08-29] MEDS: DUONEB (A & A) INH SCH ×6 (03:22→23:18)
[2019-08-29] MEDS: SOLU-MEDROL IV SCH ×2 (04:03→16:45)
[2019-08-29] MEDS: PROTONIX PO SCH (06:09)
[2019-08-29] MEDS: SPIRIVA INH SCH (08:00)
[2019-08-29] MEDS: NEURONTIN PO SCH ×3 (08:13→16:44)
[2019-08-29] MEDS: EFFEXOR PO SCH (08:13)
[2019-08-29] MEDS: KLONOPIN PO SCH ×2 (08:14→21:36)
[2019-08-29] MEDS: PRISTIQ ER PO SCH (08:14)
[2019-08-29] MEDS: COZAAR PO SCH (08:14)
[2019-08-29] MEDS: KLOR-CON PO SCH (08:14)
[2019-08-29] MEDS: LASIX PO SCH (08:14)
[2019-08-29] MEDS: TOPAMAX PO SCH ×2 (08:14→21:36)
[2019-08-29] MEDS: PROZAC PO SCH (08:14)
[2019-08-29] MEDS: SENOKOT PO SCH ×2 (08:14→21:36)
[2019-08-29] MEDS: DALIRESP PO SCH (08:14)
[2019-08-29] MEDS: DIFLUCAN PO SCH (08:14)
[2019-08-29] MEDS: AMITIZA PO SCH ×2 (08:14→16:44)
[2019-08-29] MEDS: BUSPAR PO SCH ×2 (08:14→21:36)
[2019-08-29] MEDS: MAXIPIME 2 GM in NS 100 ML IV SCH ×2 (10:11→21:35)
[2019-08-29] MEDS: PERCOCET-10 PO PRN (12:16)
[2019-08-29] MEDS: DESYREL PO SCH (21:36)
--- NOTE | 2019-08-30 01:38 | PROGRESS NOTE ---
DATE: 08/29/2019 SUBJECTIVE: The patient notes she is still having cough and congestion, still having weakness and generalized shortness of breath. Denies any fevers or chills. OBJECTIVE: Vital Signs: Temperature is 98 degrees, pulse 82, respiratory rate 18, blood pressure 118/79. General: The patient is awake, very pleasant, in no current respiratory distress. HEENT: Normocephalic. Neck: Supple. Cardiovascular: Regular rate. Chest: Clear. Abdomen: Soft. Extremities: Moves all extremities. ASSESSMENT: 1. COPD with exacerbation. 2. Sleep apnea. 3. Urinary tract infection. 4. Acute on chronic hypercapnic respiratory failure. PLAN: She has Enterobacter in her sputum. We switched antibiotics. She is starting to move air better. Hopefully she can discharge home tomorrow. cc: Amadeo De La Cruz MD
[2019-08-30] MEDS: DUONEB (A & A) INH SCH ×6 (04:14→22:32)
[2019-08-30] MEDS: SOLU-MEDROL IV SCH (04:25)
[2019-08-30] MEDS: PROTONIX PO SCH (06:17)
[2019-08-30] MEDS: SPIRIVA INH SCH (07:52)
[2019-08-30] MEDS: TOPAMAX PO SCH ×2 (08:21→21:24)
[2019-08-30] MEDS: EFFEXOR PO SCH (08:21)
[2019-08-30] MEDS: PRISTIQ ER PO SCH (08:21)
[2019-08-30] MEDS: SENOKOT PO SCH ×2 (08:22→21:24)
[2019-08-30] MEDS: COZAAR PO SCH (08:22)
[2019-08-30] MEDS: DALIRESP PO SCH (08:22)
[2019-08-30] MEDS: PROZAC PO SCH (08:22)
[2019-08-30] MEDS: AMITIZA PO SCH ×2 (08:22→16:24)
[2019-08-30] MEDS: KLOR-CON PO SCH (08:22)
[2019-08-30] MEDS: NEURONTIN PO SCH ×3 (08:22→16:24)
[2019-08-30] MEDS: LASIX PO SCH (08:22)
[2019-08-30] MEDS: DIFLUCAN PO SCH (08:22)
[2019-08-30] MEDS: KLONOPIN PO SCH ×2 (08:22→21:24)
[2019-08-30] MEDS: BUSPAR PO SCH ×3 (10:05→21:24)
[2019-08-30] MEDS: MAXIPIME 2 GM in NS 100 ML IV SCH ×3 (10:05→12:58)
[2019-08-30] MEDS: PERCOCET-10 PO PRN ×2 (10:13→17:21)
[2019-08-30] MEDS ORDERED: SEPTRA DS PO SCH (10:45)
[2019-08-30] MEDS: PREDNISONE PO SCH (11:52)
[2019-08-30] MEDS ORDERED: TAZIDIME 2 GM/NS 2 GM/100 ML IVPB IV SCH (12:30)
[2019-08-30 14:45] LABS: INR 0.92; PROTIME 12.8 Seconds (11.0-16.0)
[2019-08-30] MEDS: DESYREL PO SCH (21:24)
[2019-08-31] MEDS: MAXIPIME 2 GM in NS 100 ML IV SCH ×2 (01:10→12:34)
[2019-08-31] MEDS: DUONEB (A & A) INH SCH ×4 (03:12→15:42)
[2019-08-31] MEDS: PROTONIX PO SCH (06:04)
[2019-08-31] MEDS: SPIRIVA INH SCH (07:22)
[2019-08-31] MEDS: PRISTIQ ER PO SCH (07:59)
[2019-08-31] MEDS: AMITIZA PO SCH ×2 (07:59→16:42)
[2019-08-31] MEDS: KLONOPIN PO SCH (07:59)
[2019-08-31] MEDS: PROZAC PO SCH (07:59)
[2019-08-31] MEDS: PREDNISONE PO SCH (07:59)
[2019-08-31] MEDS: DIFLUCAN PO SCH (07:59)
[2019-08-31] MEDS: COZAAR PO SCH (08:00)
[2019-08-31] MEDS: BUSPAR PO SCH (08:00)
[2019-08-31] MEDS: DALIRESP PO SCH (08:00)
[2019-08-31] MEDS: SENOKOT PO SCH (08:00)
[2019-08-31] MEDS: LASIX PO SCH (08:00)
[2019-08-31] MEDS: TOPAMAX PO SCH (08:00)
[2019-08-31] MEDS: EFFEXOR PO SCH (08:01)
[2019-08-31] MEDS: NEURONTIN PO SCH ×3 (08:01→16:42)
[2019-08-31] MEDS: KLOR-CON PO SCH (08:01)
[2019-08-31] MEDS ORDERED: FLEXERIL PO PRN (08:45)
[2019-08-31] MEDS ORDERED: NS 250 ML ONE (09:10)
[2019-08-31 11:19] VITALS: BP 107/72
--- NOTE | 2019-08-31 12:32 | PROGRESS NOTE ---
DATE: 08/31/2019 SUBJECTIVE: She has no major complaints. OBJECTIVE DATA: Vital signs: Blood pressure was 113/77, heart rate is 61, respiratory rate 18, temperature 97.6, 99% on 3 L. Cardiovascular: Regular rate and rhythm. Pulmonary: Bilateral breath sounds clear to auscultation. GI: Soft, nontender, nondistended. Bowel sounds are positive. LABORATORY DATA: Nothing new today. PROBLEM LIST: 1. Chronic obstructive pulmonary disease exacerbation is stable currently. 2. Enterobacter pneumonia, bronchitis. Unfortunately, based on her allergies and the sensitivities there is really no oral option for her so we will have to likely pursue IV antibiotics and a PICC line. 3. [id number] respiratory failure. She seems to be doing okay. DISPOSITION: We will place PICC and setup home IV, anticipate discharge tomorrow. cc: Jordan Ballard MD
--- NOTE | 2019-08-31 21:23 | INFECTIOUS DISEASE PROGRESS NO ---
DATE: 08/31/2019 The patient has been treated by Dr. Ballard at [facility]. She has an Enterobacter pneumonia, and she is going home on cefepime 2 g IV every 12 hours for 10 days to be given through a PICC. The patient has been given an appointment to come to my office in 10 days. cc: Chepe Lloyd MD
--- NOTE | 2019-09-01 09:02 | DISCHARGE SUMMARY ---
ADMISSION DATE: 08/22/2019 DISCHARGE DATE: 08/31/2019 DISCHARGE DIAGNOSES: 1. Enterobacter pneumonia right lower lobe. 2. Chronic obstructive pulmonary disease exacerbation. 3. Acute on chronic hypercapnic respiratory failure. CONSULTATIONS: None. PROCEDURES: None. HOSPITAL COURSE: Briefly, this is a 59-year-old female with COPD. She has significant COPD. She is on home oxygen. She came in for shortness of breath. She had some urinary complaints as well, although I do not think her urine culture ever grew out anything. She did produce a sputum sample which ended up growing out Enterobacter aerogenes, which was resistant to several agents, Levaquin Rocephin, cefazolin, but not cefepime. The patient was switched over to cefepime and stabilized. I actually switch her to Rocephin from Levaquin but it is resistant to both. The patient stabilized, however because of the need for IV antibiotics, we switched her to cefepime and set her up with a PICC and will do home IV antibiotics for 10 days. The patient is stabilized. No white count. DISCHARGE MEDICATIONS: 1. Flexeril 10 at bedtime. 2. BuSpar 30 b.i.d. 3. Albuterol p.r.n. 4. Fluoxetine 20 daily. 5. Lasix 40 daily. 6. Gabapentin 600 t.i.d. 7. Klor-Con 20 daily. 8. Losartan 25 daily. 9. Percocet as needed. 10. Protonix 40 daily. 11. Spiriva daily. 12. Symbicort p.r.n. 13. Topiramate 50 b.i.d. 14. Zofran p.r.n. 15. DuoNeb q.6, I guess we will do q.4. 16. Cefepime will be 2 g IV q.12h for 10 days. FOLLOWUP: Follow up with Dr. Lloyd and her PCP who is Mauri Baird. 32 minute discharge. cc: Jordan Ballard MD
== END 2019-08-31 17:39 | disposition home health service (06) | DRG 177 ==
LOC: P.ED 09:18 → P.MEDSURG 12:07 → SUATTDRO 12:07
PROVIDERS: ATTEND Internal Medicine